=== PATIENT | female | born 1960 | race Caucasian/White ===

== ENCOUNTER 2019-01-10 14:07 | Emergency (ER) | payer MEDICAID ==
[~2019-01-10] VITALS: Ht 162.6 cm; Wt 62.7 kg
[~2019-01-10 14:07] MED LIST: BUSPAR10 MG PO; CLARITIN 1010 MG/TAB PO; DAZIDOX10 MG PO; DITROPAN 5MG TAB5 MG PO; LAMICTAL 25MG T25 MG PO; MOVANTIK25 MG PO; NEURONTIN600 MG/TAB PO; NIASPAN 500MG500 MG PO; OMEGA-31 SGL PO; OXYCONTIN40 MG PO; PERCOCET 325 MG1 TA2 PO; PROAIR HFA0.09 MG/AC IH; SINGULAIR 110 MG/TAB PO; SYNTHROID0.112 MG/T PO; ZOLOFT 50MG50 MG PO
[2019-01-10 14:11] VITALS: TEMP 97.2
[2019-01-10 14:42] LABS: BASO % 0.8 % (0.0-2.0); EOS # 0.1 (0.0-0.7); EOS % 2.8 % (0-4.0); GRAN # 2.5 (1.4-6.5); GRAN % 51.2 % (42.2-75.2); HEMATOCRIT 42.8 % (37.0-47.0); LYMPH % 39.7 % (20.0-51.0); MEAN CELL VOLUME 92 fl (80.0-100.0); MEAN CORPUSCULAR HEMOGLOBIN 30 pg (27.0-31.0); MEAN CORPUSCULAR HGB CONC 33 g/dl (33.0-37.0); MEAN PLATELET VOLUME 9.6 fl (7.4-10.4); MONO # 0.3 (0.1-0.6); MONO % 5.5 % (1.7-9.3); PLATELET COUNT 165 K/mm3 (130-400); RED BLOOD COUNT 4.64 M/mm3 (4.10-5.30); REDCELL DISTRIBUTION WIDTH-CV 12.3 % (11.5-14.5)
[2019-01-10 14:55] LABS: ALANINE AMINOTRANSFERASE 9 U/L (9-52); ALBUMIN 3.7 gm/dL (3.5-5.0); ALKALINE PHOSPHATASE 73 U/L (50-136); ANION GAP 7 mmol/L (7-16); AST,SGOT 19 U/L (15-37); BILIRUBIN,TOTAL 0.4 mg/dL (0.0-1.0); BLOOD UREA NITROGEN 14 mg/dL (7-17); CALCIUM 8.8 mg/dL (8.4-10.2); CARBON DIOXIDE 28 mmol/L (22-30); CHLORIDE 105 mmol/L (98-107); CREATININE, serum 0.77 (0.52-1.25); GLUCOSE 129 mg/dL (74-106); POTASSIUM 3.9 mmol/L (3.4-5.0); SODIUM 140 mmol/L (137-145); TOTAL PROTEIN 6.7 gm/dL (6.4-8.2)
[2019-01-10 15:00] LABS: ACETAMINOPHEN < 10 ug/mL (10-30); ALCOHOL(ethanol),MEDICAL < 10 mg/dL; SALICYLATE < 1.0 mg/dL
[2019-01-10] MEDS ORDERED: CATAPRES0.3 MG PO (16:14)
[2019-01-10] MEDS ORDERED: SYNTHROID0.088 MG/T PO (16:14)
[2019-01-10] MEDS ORDERED: NEURONTIN600 MG/TAB PO (16:15)
[2019-01-10] MEDS ORDERED: VITAMIN B-1000 MCG/T PO (16:15)
[2019-01-10] MEDS ORDERED: SALAGEN 5MG TAB5 MG PO (16:15)
[2019-01-10] MEDS ORDERED: ZOLOFT 100MG100 MG PO (16:15)
[2019-01-10] MEDS ORDERED: DITROPAN 5MG TAB5 MG PO (16:16)
[2019-01-10 18:27] LABS: COLLECTION METHOD CLEAN CATCH
[2019-01-10 18:33] LABS: MUCOUS Present /lpf; PH 5 (5-8); SQUAMOUS EPITHELIAL None Seen /hpf; URINE APPEARANCE Clear; URINE BACTERIA None Seen /hpf; URINE BILIRUBIN Negative (NEGATIVE); URINE BLOOD Negative (NEGATIVE); URINE COLOR Yellow; URINE GLUCOSE Negative (NEGATIVE); URINE KETONE Negative (NEGATIVE); URINE LEUKOCYTE ESTERASE Negative (NEGATIVE); URINE NITRATE Negative (NEGATIVE); URINE PROTEIN(semi-quant) Negative (NEGATIVE); URINE RBC 0-2 /hpf; URINE UROBILINOGEN Negative (NEGATIVE)
[2019-01-10 18:41] LABS: TRICYCLIC ANTIDEPRESS URINE NEGATIVE
[2019-01-10 21:56] VITALS: BP 139/79; PULSE 65
== END 2019-01-10 22:00 | disposition home or self-care (01) ==
LOC: COL.ER 14:07
PROVIDERS: Emergency Medicine
DX: T44.3X2A Poisoning by other parasympatholytics [anticholinergics and antimuscarinics] and spasmolytics, intentional self-harm, initial encounter (principal); T46.5X2A Poisoning by other antihypertensive drugs, intentional self-harm, initial encounter; T42.6X2A Poisoning by other antiepileptic and sedative-hypnotic drugs, intentional self-harm, initial encounter; T44.1X2A Poisoning by other parasympathomimetics [cholinergics], intentional self-harm, initial encounter; T48.6X2A Poisoning by antiasthmatics, intentional self-harm, initial encounter; T38.1X2A Poisoning by thyroid hormones and substitutes, intentional self-harm, initial encounter; J45.909 Unspecified asthma, uncomplicated; I10 Essential (primary) hypertension; F32.9 Major depressive disorder, single episode, unspecified; E03.9 Hypothyroidism, unspecified; F17.210 Nicotine dependence, cigarettes, uncomplicated; F15.10 Other stimulant abuse, uncomplicated; Z90.89 Acquired absence of other organs
CPT/HCPCS: J7030

== ENCOUNTER 2019-02-23 00:19 | Emergency (ER) | payer MEDICAID ==
[~2019-02-23] VITALS: Ht 162.6 cm; Wt 66.8 kg
[~2019-02-23 00:19] MED LIST changes: +CATAPRES0.3 MG PO; +SALAGEN 5MG TAB5 MG PO; +SYNTHROID0.088 MG/T PO; +VITAMIN B-1000 MCG/T PO; +ZOLOFT 100MG100 MG PO
[2019-02-23 00:29] VITALS: BP 129/65; TEMP 97.3
[2019-02-23] MEDS ORDERED: CEFTIN 250250 MG/TAB PO (01:04)
[2019-02-23 01:23] VITALS: PULSE 88
== END 2019-02-23 01:23 | disposition home or self-care (01) ==
LOC: COL.ER 00:19
DX: J01.90 Acute sinusitis, unspecified (principal); J44.9 Chronic obstructive pulmonary disease, unspecified; F17.210 Nicotine dependence, cigarettes, uncomplicated; F31.9 Bipolar disorder, unspecified; F43.10 Post-traumatic stress disorder, unspecified; E03.9 Hypothyroidism, unspecified; F41.9 Anxiety disorder, unspecified